=== PATIENT | female | born 1985 | race Caucasian/White ===

== ENCOUNTER 2021-10-23 09:02 | Emergency (ER) | payer MEDICAID ==
[2021-10-23 09:32] VITALS: BP 119/70
[2021-10-23] MEDS ORDERED: SODIUM CHLORIDE 0.9% 1000 ML 1,000 ML IV ONE (10:27)
[2021-10-23] MEDS ORDERED: ONDANSETRON 4 MG/2 ML INJ IV ONE (10:27)
[2021-10-23] MEDS ORDERED: ACETAMINOPHEN 500 MG TAB PO ONE (10:28)
[2021-10-23] MEDS ORDERED: PROMETHAZINE 25 MG TAB PO ONE (11:15)
--- NOTE | 2021-10-23 11:52 | Ultrasound Report ---
ULTRASOUND OBSTETRIC INDICATION: 12 weeks , pelvic pain. TECHNIQUE: Transabdominal. COMPARISON: None available. FINDINGS: GESTATIONAL SAC: Well-defined oval shape and intrauterine in location. YOLK SAC: No significant abnormality. EMBRYO/FETUS: No significant abnormality. - [place]-Rump Length = 7.2 cm = 13 weeks, 2 day(s). - Heart Rate = 152 beats per minute. ADNEXA: No significant abnormality. FREE FLUID: None. ADDITIONAL FINDINGS: None. IMPRESSION: 1. Single, living intrauterine with estimated sonographic age of 13 weeks, 2 day(s). 2. No acute findings. Signer Name: Jack Mueller MD Signed: 10/23/2021 11:48 AM Workstation Name: [id number]
--- NOTE | 2021-10-23 12:10 | Emergency Department Report ---
ED Female HPI - General Chief complaint: Abdominal Pain Stated complaint: 12 WKS PREG/CRAMPING/DEHYDRATED Source: patient Mode of arrival: Ambulatory Limitations: No Limitations - History of Present Illness Initial comments: Chief complaint: I am cramping so badly." HPI: This is a 36-year-old P 7 G 3-3-0-3 who presents with abdominal cramping. She is approximately 13 weeks 3 days according to her due date April 27, 2022. She receives obstetrical care at [facility]. She has had lower abdominal cramping for the last several days. She also has had constipation. Stool softener has not provided any relief. She denies vaginal bleeding. She has had significant nausea vomiting throughout her . MD Complaint: pelvic pain -: Gradual, days(s) (Several days) Severity: severe Quality: cramping Consistency: constant Improves with: none Worsens with: none Are you Now?: Yes Associated Symptoms: nausea/vomiting, other (Constipation) - Related Data Previous Rx's Medication Instructions Recorded Last Taken Type Promethazine [Phenergan] 25 mg PO Q6HR PRN #30 tab 10/23/21 Unknown Rx Allergies Allergy/AdvReac Type Severity Reaction Status Date / Time No Known Allergies Allergy Verified 10/23/21 09:32 ED Review of Systems ROS: Stated complaint: 12 WKS PREG/CRAMPING/DEHYDRATED Other details as noted in HPI Comment: All other systems reviewed and negative Constitutional: denies: chills, fever, malaise Respiratory: denies: cough, shortness of breath Cardiovascular: denies: chest pain Gastrointestinal: abdominal pain, nausea, vomiting, constipation ED Past Medical Hx - Past Medical History Previous Medical History?: Yes Hx Hypertension: Yes - Surgical History Past Surgical History?: Yes Additional Surgical History: Surgical x2 - Social History Smoking Status: Former Smoker Substance Use Type: None - Medications Home Medications: Home Medications Medication Instructions Recorded Confirmed Last Taken Type Promethazine [Phenergan] 25 mg PO Q6HR PRN #30 tab 10/23/21 Unknown Rx ED Physical Exam - General Limitations: No Limitations General appearance: alert, in no apparent distress - Head Head exam: Present: atraumatic, normocephalic - Eye Eye exam: Present: normal appearance - ENT ENT exam: Present: mucous membranes moist - Neck Neck exam: Present: normal inspection, full ROM - Respiratory Respiratory exam: Present: normal lung sounds bilaterally. Absent: respiratory distress, wheezes, rales, rhonchi - Cardiovascular Cardiovascular Exam: Present: regular rate, normal rhythm, normal heart sounds. Absent: systolic murmur, diastolic murmur, rubs, gallop - GI/Abdominal GI/Abdominal exam: Present: soft, normal bowel sounds. Absent: distended, tenderness, guarding, rebound - Extremities Exam Extremities exam: Present: normal inspection - Neurological Exam Neurological exam: Present: alert, oriented X3 - Psychiatric Psychiatric exam: Present: normal affect, normal mood - Skin Skin exam: Present: warm, dry, intact, normal color. Absent: rash ED Course Vital Signs 10/23/21 09:30 Temperature 98.7 F Pulse Rate 104 H Respiratory 18 Rate Blood Pressure 119/70 [Left] O2 Sat by Pulse 99 Oximetry ED Medical Decision Making - Lab Data Result diagrams: 10/23/21 11:30 10/23/21 11:30 - Radiology Data Radiology results: [place] [address] Ultrasound Report Signed Patient: JEROD ACEVEDO MR#: [id number] : 1985 Acct:[id number] Age/Sex: 36 / F ADM Date: 10/23/21 Loc: ED Attending Dr: Ordering Physician: Ngozi Sanford MD Date of Service: 10/23/21 Procedure(s): US OB <= 14 weeks fetus Accession Number(s): [id number] cc: Ngozi Sanford MD ULTRASOUND OBSTETRIC INDICATION: 12 weeks , pelvic pain. TECHNIQUE: Transabdominal. COMPARISON: None available. FINDINGS: GESTATIONAL SAC: Well-defined oval shape and intrauterine in location. YOLK SAC: No significant abnormality. EMBRYO/FETUS: No significant abnormality. - [address]-Rump Length = 7.2 cm = 13 weeks, 2 day(s). - Heart Rate = 152 beats per minute. ADNEXA: No significant abnormality. FREE FLUID: None. ADDITIONAL FINDINGS: None. IMPRESSION: 1. Single, living intrauterine with estimated sonographic age of 13 weeks, 2 day(s). 2. No acute findings. Signer Name: Jack Mueller MD Signed: 10/23/2021 11:48 AM Workstation Name: [id number] Transcribed By: PASQUALE Dictated By: Jack Mueller MD Electronically Authenticated By: Jack Mueller MD Signed Date/Time: 10/23/21 1148 DD/ 1147 TD/TT: - Medical Decision Making Abdominal pain in differential diagnosis includes threatened miscarriage, appendicitis, UTI, round ligament pain. Patient did have elevated white count. I performed serial abdominal exams. She did not have any tenderness or fever to indicate appendicitis. She has bilateral lower abdominal pain left to right. Pain improved with Tylenol. She understands to return if symptoms persist or worsens., She states that the pain feels like a contraction. She had pain similar pain earlier in her . She was diagnosed with UTI at that time. I have prescribed prophylactic antibiotic Macr obid. Ultrasound confirms IUP. Prescribed promethazine. Critical care attestation.: If time is entered above; I have spent that time in minutes in the direct care of this critically ill patient, excluding procedure time. ED Disposition Clinical Impression: Abdominal pain affecting Disposition: 01 HOME / SELF CARE / HOMELESS Is pt being admited?: No Does the pt Need Aspirin: No Condition: Stable Instructions: Abdominal Pain (ED), Abdominal Pain During , Gozs-vs-Iowz Prescriptions: Promethazine [Phenergan] 25 mg PO Q6HR PRN #30 tab PRN Reason: Nausea Referrals: PRIMARY CARE, [Primary Care Provider] - 3-5 Days
[2021-10-23 12:13] LABS: Basophils % (Auto) 0.3 % (0.0-1.8); Eosinophils # (Auto) 0.1 K/mm3 (0.0-0.4); Eosinophils % (Auto) 0.7 % (0.0-4.3); Hematocrit 44.3 % (30.3-42.9); Hemoglobin 14.3 gm/dl (10.1-14.3); Lymphocytes # (Auto) 1.5 K/mm3 (1.2-5.4); Lymphocytes % (Auto) 10.4 % (13.4-35.0); Mean Corpuscular HGB Conc 32 % (30-34); Mean Corpuscular Volume 87 fl (79-97); Monocytes # (Auto) 0.8 K/mm3 (0.0-0.8); Monocytes % (Auto) 5.5 % (0.0-7.3); Platelet Count 342 K/mm3 (140-440); Red Blood Count 5.07 M/mm3 (3.65-5.03); Red Cell Distribution Width 12.8 % (13.2-15.2)
[2021-10-23 12:38] LABS: Alanine Aminotransferase 14 units/L (7-56); Albumin 4.2 g/dL (3.9-5); Blood Urea Nitrogen 6 mg/dL (7-17); Calcium 9.2 mg/dL (8.4-10.2); Hemolysis Index 0
[2021-10-23 12:47] LABS: BUN/Creatinine Ratio 12
== END 2021-10-23 13:37 | disposition home or self-care (01) ==
LOC: ED 09:02
DX: O26.891 Other specified pregnancy related conditions, first trimester (principal); R10.9 Unspecified abdominal pain; Z3A.13 13 weeks gestation of pregnancy; I10 Essential (primary) hypertension; Z98.890 Other specified postprocedural states; Z87.891 Personal history of nicotine dependence; Z79.899 Other long term (current) drug therapy
CPT/HCPCS: 36415; 76801; 80053; 85025; 96360; 99284; J2405; J7030; Q0169; Q0162

== ENCOUNTER 2021-12-22 11:32 | Outpatient (CLI) | payer MEDICAID ==
[2021-12-22] MEDS ORDERED: LACTATED RINGERS 1,000 ML IV ONE (12:00)
[2021-12-22] MEDS ORDERED: METOCLOPRAMIDE 10 MG/2 ML INJ IV ONE (12:29)
[2021-12-22] MEDS ORDERED: BICITRA ORAL LIQD 30ML PO ONE (12:30)
[2021-12-22 12:42] VITALS: BP 125/79
[2021-12-22 12:47] LABS: Mucus,Urine 3+ /HPF
[2021-12-22 12:48] LABS: Color,Urine Dark Yellow (Yellow)
[2021-12-22 12:49] LABS: Bilirubin,Urine Small (Negative); Blood,Urine Trace (Negative); PH,Urine 6.5 (5.0-7.0)
[2021-12-22 12:50] LABS: Urobilinogen,Urine < 2.0 mg/dL (<2.0)
[2021-12-22 12:57] LABS: Ictotest,Urine Negative (Negative)
== END 2021-12-22 14:36 | disposition home or self-care (01) ==
LOC: TRG 11:32 → APU 11:34 → TRG 14:36
PROVIDERS: ATTEND Obstetrics & Gynecology
DX: O21.2 Late vomiting of pregnancy (principal); O16.2 Unspecified maternal hypertension, second trimester; O26.892 Other specified pregnancy related conditions, second trimester; R07.9 Chest pain, unspecified; R10.9 Unspecified abdominal pain; R42 Dizziness and giddiness; E86.0 Dehydration; Z3A.21 21 weeks gestation of pregnancy
CPT/HCPCS: 59025; 81001; 96361; 96374; J2765; J7120; 96360

== ENCOUNTER 2021-12-23 14:39 | Outpatient (CLI) | payer MEDICAID ==
[2021-12-23] MEDS ORDERED: LACTATED RINGERS 500 ML IV ONE (15:15)
[2021-12-23] MEDS ORDERED: ONDANSETRON 4 MG/2 ML INJ ONE (17:04)
[2021-12-23 17:07] VITALS: BP 134/82
[2021-12-23] MEDS ORDERED: ONDANSETRON 4 MG/2 ML INJ IV ONE (18:00)
[2021-12-23] MEDS ORDERED: METOCLOPRAMIDE 10 MG/2 ML INJ IV ONE (18:00)
== END 2021-12-23 19:25 | disposition home or self-care (01) ==
LOC: TRG 14:39 → APU 14:41 → TRG 19:25
PROVIDERS: ATTEND Obstetrics & Gynecology
DX: O21.2 Late vomiting of pregnancy (principal); O26.892 Other specified pregnancy related conditions, second trimester; R42 Dizziness and giddiness; R07.81 Pleurodynia; O13.2 Gestational [pregnancy-induced] hypertension without significant proteinuria, second trimester; Z3A.21 21 weeks gestation of pregnancy
CPT/HCPCS: 59025; 96361; 96365; 96368; J2405; J2765; J7120

== ENCOUNTER 2022-03-05 17:39 | Outpatient (CLI) | payer MEDICAID ==
[2022-03-05] MEDS ORDERED: LACTATED RINGERS 500 ML IV ONE (18:48)
[2022-03-05] MEDS ORDERED: ONDANSETRON 4 MG/2 ML INJ IV ONE (20:14)
[2022-03-05 20:32] LABS: Bacteria,Urine 2+ /HPF (Negative); Bilirubin,Urine NEG (Negative); Blood,Urine SM (Negative); Color,Urine Yellow (Yellow); Mucus,Urine 1+ /HPF; Urobilinogen,Urine < 2.0 mg/dL (<2.0)
[2022-03-05 20:33] LABS: WBC,Urine > 182.0 /HPF (0.0-6.0)
[2022-03-05] MEDS ORDERED: LIDOCAINE-MPF (1%) 10 MG/1 ML VIAL 5 ML INFILTRATI ONE (20:53)
[2022-03-05] MEDS ORDERED: ACETAMINOPHEN 500 MG TAB PO ONE (20:56)
[2022-03-05 22:18] VITALS: BP 130/83
[2022-03-05] MEDS ORDERED: NIFEdipine*For Tocolysis only* 10 MG CAPSULE PO ONE (22:56)
[2022-03-06] MEDS ORDERED: BETAMET ACET/BETAMET NA PH 6 MG/ML INJ 5 ML MDV IM ONE (00:31)
== END 2022-03-06 01:00 | disposition home or self-care (01) ==
LOC: TRG 17:39 → APU 17:41 → TRG 03-06 01:00
PROVIDERS: ATTEND Obstetrics & Gynecology
DX: O26.893 Other specified pregnancy related conditions, third trimester (principal); R10.30 Lower abdominal pain, unspecified; M54.9 Dorsalgia, unspecified; O13.3 Gestational [pregnancy-induced] hypertension without significant proteinuria, third trimester; O24.913 Unspecified diabetes mellitus in pregnancy, third trimester; Z3A.32 32 weeks gestation of pregnancy
CPT/HCPCS: 36415; 59025; 81001; 82731; 96361; 96372; 96374; 96375; J0696; J0702; J2405; J3490; J7120; 96360

== ENCOUNTER 2022-03-07 10:41 | Outpatient (CLI) | payer MEDICAID ==
[2022-03-07] MEDS ORDERED: BETAMET ACET/BETAMET NA PH 6 MG/ML INJ 5 ML MDV IM NR (10:45)
[2022-03-07] MEDS ORDERED: BETAMET ACET/BETAMET NA PH 6 MG/ML INJ 5 ML MDV IM ONE (10:47)
[2022-03-11] MEDS ORDERED: LACTATED RINGERS 1,000 ML ONE (10:11)
[2022-03-15] MEDS ORDERED: LACTATED RINGERS 1,000 ML ONE ×2 (06:45→19:04)
== END 2022-03-07 11:00 | disposition home or self-care (01) ==
LOC: TRG 10:41 → APU 10:43 → TRG 11:00
PROVIDERS: ATTEND Obstetrics & Gynecology
DX: O47.03 False labor before 37 completed weeks of gestation, third trimester (principal); Z3A.32 32 weeks gestation of pregnancy
CPT/HCPCS: 96372; J0702

== ENCOUNTER 2022-04-14 19:11 | Inpatient (IN) | payer MEDICAID ==
[2022-04-14] MEDS ORDERED: ACETAMINOPHEN 325 MG TAB PO ONE (19:59)
[2022-04-14] MEDS ORDERED: SODIUM CHLORIDE 0.9% 1000 ML 1,000 ML IV SCH (20:00)
[2022-04-14 22:09] LABS: Creatinine,Urine 55.8 mg/dL (0.1-20.0)
[2022-04-14 22:11] LABS: Bilirubin,Urine NEG (Negative); Blood,Urine NEG (Negative); Color,Urine Yellow (Yellow); Protein,Urine <15 mg/dL mg/dL (Negative); Urobilinogen,Urine < 2.0 mg/dL (<2.0)
[2022-04-14 22:12] LABS: Mucus,Urine FEW /HPF
[2022-04-14 22:29] LABS: Basophils % (Auto) 0.4 % (0.0-1.8); Eosinophils # (Auto) 0.2 K/mm3 (0.0-0.4); Eosinophils % (Auto) 1.5 % (0.0-4.3); Hematocrit 33.6 % (30.3-42.9); Hemoglobin 11.1 gm/dl (10.1-14.3); Lymphocytes # (Auto) 2.2 K/mm3 (1.2-5.4); Lymphocytes % (Auto) 18.2 % (13.4-35.0); Mean Corpuscular HGB Conc 33 % (30-34); Mean Corpuscular Volume 88 fl (79-97); Monocytes # (Auto) 1.2 K/mm3 (0.0-0.8); Monocytes % (Auto) 9.6 % (0.0-7.3); Platelet Count 260 K/mm3 (140-440); Red Cell Distribution Width 14.1 % (13.2-15.2)
[2022-04-14 22:51] LABS: Alanine Aminotransferase 8 units/L (7-56)
[2022-04-14 23:13] LABS: Alanine Aminotransferase 8 units/L (7-56); Albumin 3.2 g/dL (3.9-5); Blood Urea Nitrogen 7 mg/dL (7-17); Calcium 9.2 mg/dL (8.4-10.2); Hemolysis Index 5
[2022-04-14 23:21] LABS: BUN/Creatinine Ratio 18
[2022-04-14] MEDS ORDERED: TERBUTALINE 1 MG/1 ML INJ SUB-Q PRN (23:39)
[2022-04-14] MEDS ORDERED: ePHEDrine SULFATE 50 MG/1 ML INJ IV PRN (23:39)
[2022-04-14] MEDS ORDERED: CARBOPROST TROMETHAMINE 250 MCG/1 ML INJ IM PRN (23:39)
--- NOTE | 2022-04-14 23:39 | History and Physical Report ---
History of Present Illness Date of examination: 04/14/22 Date of admission: 04/14/2022 Chief complaint: Chronic hypertension on medication with exacerbation of blood pressure at home History of present illness: 36-year-old at 37-6/7 weeks gestation presents to OB triage reporting elevated blood pressure >150/100 at home despite taking her usual dose of lab etalol. There are no headaches, diplopia, right upper quadrant pain, or scotomata. There is no vaginal bleeding. There is no leaking of fluid. There are irregular contractions. There is good movement. In OB triage, superimposed preeclampsia was ruled out. However, as this patient has chronic hypertension on medication at 37 weeks gestation, induction of labor is medically indicated according to ACOG committee opinion 831. The patient is admitted to labor and delivery for cervical ripening and induction of labor. Past History Past Medical History: hypertension Past Surgical History: no surgical history Family/Genetic History: none Social history: no significant social history - Obstetrical History Expected Date of Delivery: 04/29/22 Actual Gestation: 38 Week(s) 0 Day(s) : 6 Para: 3 Hx # Term Pregnancies: 3 Spontaneous Abortions: 2 Medications and Allergies Allergies Allergy/AdvReac Type Severity Reaction Status Date / Time No Known Allergies Allergy Verified 10/23/21 09:32 Home Medications Medication Instructions Recorded Confirmed Last Taken Type Promethazine [Phenergan] 25 mg PO Q6HR PRN #30 tab 10/23/21 04/14/22 Rx Labetalol 100mg TAB 100 mg PO DAILY 03/05/22 03/05/22 04/14/22 History Review of Systems All systems: negative - Vital Signs Vital signs: Vital Signs Pulse BP 97 H 123/82 04/14/22 19:41 04/14/22 19:41 Temp Pulse Resp BP Pulse Ox 99 F 89 17 121/80 98 04/14/22 19:42 04/14/22 23:34 04/14/22 19:42 04/14/22 23:25 04/14/22 23:34 - Physical Exam Breasts: Positive: normal Cardiovascular: Regular rate Lungs: Positive: Normal air movement Abdomen: Positive: normal appearance, normal bowel sounds Genitourinary (Female): Positive: normal external genitalia, normal perenium Vulva: both: normal Vagina: Positive: normal moisture Uterus: Positive: enlarged Adnexa: both: normal Anus/Rectum: Positive: normal perianal skin Extremities: Positive: normal Deep Tendon Reflex Grade: Normal +2 - Obstetrical FHR: category 1 Uterine Contraction Monitor Mode: Palpation Cervical Dilatation: 1.5 Cervical Effacement Percentage: 60 station: -3 Uterine Contraction Pattern: Irregular Results Result Diagrams: 04/14/22 22:00 04/14/22 22:00 Abnormal lab results 04/14/22 04/14/22 04/14/22 Range/Units 22:00 22:00 22:00 WBC 12.0 H (4.5-11.0) K/mm3 Johnston % (Auto) 9.6 H (0.0-7.3) % Johnston # (Auto) 1.2 H (0.0-0.8) K/mm3 Seg Neutrophils % 70.3 H (40.0-70.0) % Seg Neutrophils # 8.5 H (1.8-7.7) K/mm3 Carbon Dioxide 20 L (22-30) mmol/L Creatinine 0.4 L 0.4 L (0.6-1.2) mg/dL Alkaline Phosphatase 171 H (35-129) units/L Total Protein 5.9 L (6.3-8.2) g/dL Albumin 3.2 L (3.9-5) g/dL Urine Creatinine (0.1-20.0) mg/dL Urine Total Protein (5-11.8) mg/dL 04/14/22 Range/Units Unknown WBC (4.5-11.0) K/mm3 Johnston % (Auto) (0.0-7.3) % Johnston # (Auto) (0.0-0.8) K/mm3 Seg Neutrophils % (40.0-70.0) % Seg Neutrophils # (1.8-7.7) K/mm3 Carbon Dioxide (22-30) mmol/L Creatinine (0.6-1.2) mg/dL Alkaline Phosphatase (35-129) units/L Total Protein (6.3-8.2) g/dL Albumin (3.9-5) g/dL Urine Creatinine 55.8 H (0.1-20.0) mg/dL Urine Total Protein 13 H (5-11.8) mg/dL Urine Protein to Creatinine Ratio (UPCR)= 0.23 Estimated 24 hour urine protein= 259 mg Ultrasound: report reviewed, image reviewed (OB US Limited= SLIUP. Vertex. Posterior placenta. EFW= 3567 g (81st %-ile). YULI= 8.4 cm.) Assessment and Plan - Patient Problems (1) 37 weeks gestation of Current Visit: Yes Status: Acute Plan to address problem: care is up-to-date at [facility] [employer]NAGER. GBS status is unknown. Currently, there are no risk factors for GBS. As such, no intrapartum GBS prophylaxis at this time. However, if this patient does develop risk factors for GBS, then administer intravenous penicillin for intrapartum GBS prophylaxis. (2) Chronic hypertension during Current Visit: Yes Status: Acute Plan to address problem: This patient has chronic hypertension. She takes labetalol 100 mg p.o. twice daily for this. However, as this patient has chronic hypertension on medication and is currently at 37 weeks gestation, induction of labor is medically indicated according to ACOG committee opinion 831. Admit to labor and delivery for cervical ripening and induction of labor. (3) Encounter for induction of labor Current Visit: Yes Status: Acute Plan to address problem: Ripen cervix with Cytotec 25 mcg p.o. every 4 [address] Cook's catheter to traction for further cervical ripening. Once catheter falls out, consider artificial rupture membranes and initiation of Pitocin.
[2022-04-14] MEDS ORDERED: ACETAMINOPHEN 325 MG TAB PO PRN (23:45)
[2022-04-14] MEDS ORDERED: fentaNYL 100 MCG/2 ML INJ IV PRN (23:45)
[2022-04-14] MEDS ORDERED: OXYTOCIN DRIP 30 UNITS/500 ML BAG IV SCH (23:45)
[2022-04-14] MEDS ORDERED: BUTORPHANOL 2 MG/1 ML INJ IV PRN (23:45)
--- NOTE | 2022-04-15 00:23 | Ultrasound Report ---
ULTRASOUND OBSTETRIC LIMITED INDICATION / CLINICAL INFORMATION: EFW and YULI. - Clinical Gestational Age (GA) in weeks, days: 37, 6 TECHNIQUE: Transabdominal. COMPARISON: None available. FINDINGS: HEART RATE (beats per minute): 152 AMNIOTIC FLUID INDEX (cm) = 8.4 (normal = 7-24 cm) PRESENTATION: Cephalic. ADDITIONAL FINDINGS: Estimated age is 38 weeks 5 days. Estimated weight is 3567 g. IMPRESSION: 1. Amniotic fluid index is 8.4 cm. 2. Estimated weight is 3567 g. Signer Name: Porter Elias MD Signed: 04/15/2022 12:18 AM Workstation Name: [id number]
[2022-04-15 01:07] LABS: Uric Acid 4.1 mg/dL (3.5-7.6)
[2022-04-15] MEDS: miSOPROStol 25 MCG TAB PO SCH ×2 (01:55→08:13)
[2022-04-15 06:05] LABS: Hematocrit 32.6 % (30.3-42.9); Hemoglobin 10.8 gm/dl (10.1-14.3); Mean Corpuscular HGB Conc 33 % (30-34); Mean Corpuscular Volume 88 fl (79-97); Platelet Count 228 K/mm3 (140-440); Red Blood Count 3.69 M/mm3 (3.65-5.03); Red Cell Distribution Width 14.1 % (13.2-15.2)
[2022-04-15] MEDS: LACTATED RINGERS 1,000 ML IV SCH ×3 (12:30→16:36)
[2022-04-15] MEDS ORDERED: ePHEDrine SULFATE 50 MG/1 ML INJ IV PRN (13:52)
[2022-04-15] MEDS ORDERED: NALOXONE 0.4 MG/1 ML INJ IV PRN (13:52)
--- NOTE | 2022-04-15 14:27 | Anesthesia Consultation ---
Anesthesia Consult and Med Hx Date of service: 04/15/22 - Airway Anesthetic Teeth Evaluation: Good ROM Head & Neck: Adequate Mental/Hyoid Distance: Adequate Mallampati Class: Class II Intubation Access Assessment: Good - Pulmonary Exam CTA: Yes - Cardiac Exam Cardiac Exam: RRR - Pre-Operative Health Status ASA Pre-Surgery Classification: ASA2 Proposed Anesthetic Plan: General - Pulmonary Hx Asthma: No - Cardiovascular System Hx Hypertension: Yes (with this preg) - Central Nervous System Hx Seizures: No Hx Psychiatric Problems: No - Endocrine Hx Renal Disease: No Hx Hypothyroidism: No Hx Hyperthyroidism: No - Hematic Hx Anemia: No Hx Sickle Cell Disease: No - Other Systems Hx Alcohol Use: No
--- NOTE | 2022-04-15 14:30 | Progress Note ---
Labor Epidural - Labor Epidural Start Time: 13:38 Stop Time: 13:52 Performed by:: NACHO ROBIN Procedure: Patient is requesting epidural for labor and pain. H&P, labs were reviewed. Patient IDed, all questions and concerns were answered, and consent was signed. Timeout was performed at bedside. Patient in sitting position. Sterile prep and drape was performed. 3ml of 1% lidocaine skin wheal at L[3]- L [4]. 17- gauge Tuohy epidural needle was advanced to loss of resistance with air technique cm. Negative CSF negative blood. Epidural catheter advanced to [12] centimeters. [negative] Aspiration [negative] test dose. Sterile dressing applied. Patient tolerated procedure.
[2022-04-15] MEDS: fentaNYL-BUPIV 2 MCG/ML-0.125% 200 MCG/100 ML BAG EPIDURAL SCH ×2 (15:17→21:44)
[2022-04-15] MEDS ORDERED: LACTATED RINGERS 1,000 ML IV SCH (15:30)
--- NOTE | 2022-04-15 16:38 | Event Note ---
Date: 04/15/22 S: Has epidural now O: VE /-2, arom clear fluid, CAT I tracing, contractions every 5-6 min A: Induction of labor for CHTN P: Augment with pitocin Expect
[2022-04-15] MEDS ORDERED: OXYTOCIN DRIP 30 UNITS/500 ML BAG IV SCH (17:00)
[2022-04-15] MEDS ORDERED: BICITRA ORAL LIQD 30ML PO ONE (20:00)
[2022-04-15] MEDS ORDERED: ONDANSETRON 4 MG/2 ML INJ IV ONE (20:00)
[2022-04-15] MEDS ORDERED: MINERAL OIL 30 ML ORAL LIQD ONE (22:40)
--- NOTE | 2022-04-15 23:13 | Procedure Note ---
OB Delivery Note - Delivery Date of Delivery: 04/15/22 Surgeon: LENNOX GREEN Estimated blood loss: other (400) - Vaginal Delivery presentation: vertex Delivery position: OA Intrapartum events: other(please specify) (chronic HTN) Delivery induction: misoprostol Delivery augmentation: rupture of membranes, pitocin Delivery monitor: external FHT, external uterine Route of delivery: Delivery placenta: spontaneous Delivery cord: 3 umbilical vessels Episiotomy: none Delivery laceration: 1st degree Delivery repair: vicryl Anesthesia: epidural Delivery comments: of a viable male on 04/15/2022 @ 2248 over first degree laceration. PLacenta delivered 3VCI. Laceration repaired with 2-0 vicryl. QBL 400 cc. Mother and baby doing well. - A at 1 minute: 8 at 5 minutes: 9 Gender: Male
[2022-04-15] MEDS ORDERED: diphenhydrAMINE 25 MG CAP PO PRN (23:14)
[2022-04-15] MEDS ORDERED: PROMETHAZINE 25 MG RECT SUPP PR PRN (23:14)
[2022-04-15] MEDS ORDERED: LANOLIN/ZINC/DIMETHICONE (LANSINOH) 7 GM TP PRN (23:14)
[2022-04-15] MEDS ORDERED: WITCH HAZEL/ GLYCERIN PAD TP PRN (23:14)
[2022-04-15] MEDS ORDERED: oxyCODONE /ACETAMINOPHEN 5-325MG TAB PO PRN (23:14)
[2022-04-15] MEDS ORDERED: ACETAMINOPHEN 325 MG TAB PO PRN (23:14)
[2022-04-15] MEDS ORDERED: PROMETHAZINE 25 MG TAB PO PRN (23:14)
[2022-04-16] MEDS: IBUPROFEN 800 MG TAB PO SCH ×4 (01:33→18:18)
--- NOTE | 2022-04-16 12:10 | Progress Note ---
Assessment and Plan A: PPD#1 POST INDUCTION FOR CHTN @ 38WKS P:CONTININUE ROUTINE PP ORDERS ANTICIPATED/C HOME IN 24 HRS IF STABLE Subjective - Subjective Date of service: 04/16/22 Principal diagnosis: CHTN Patient reports: appetite normal, pain well controlled, ambulating normally : doing well, nursing well Objective - Vital Signs Latest vital signs: Vital Signs Temp Pulse Resp BP BP Pulse Ox Pulse Ox 04/16/22 08:00 98 04/16/22 07:32 97.7 F 76 16 117/62 96 04/16/22 07:06 99.1 F 82 18 117/78 97 04/16/22 06:15 18 04/16/22 02:05 98.2 F 90 18 115/76 96 100 04/16/22 01:23 99 H 98 04/16/22 01:18 106 H 97 04/16/22 01:13 99 H 97 04/16/22 01:08 105 H 97 04/16/22 01:07 98.6 F 04/16/22 01:03 105 H 97 04/16/22 00:58 107 H 96 04/16/22 00:53 104 H 96 04/16/22 00:48 104 H 97 04/16/22 00:43 105 H 95 04/16/22 00:38 109 H 97 04/16/22 00:33 96 H 123/67 97 04/16/22 00:28 102 H 95 04/16/22 00:23 101 H 97 04/16/22 00:18 106 H 97 04/16/22 00:13 107 H 97 04/16/22 00:08 105 H 96 04/16/22 00:05 109 H 93 04/16/22 00:03 106 H 120/77 97 04/15/22 23:58 109 H 95 04/15/22 23:53 106 H 95 04/15/22 23:48 105 H 97 04/15/22 23:43 101 H 97 04/15/22 23:38 100 H 97 04/15/22 23:33 100 H 125/81 96 04/15/22 23:28 103 H 97 04/15/22 23:23 99 H 98 04/15/22 23:18 108 H 96 04/15/22 23:13 111 H 97 04/15/22 23:08 97 H 96 04/15/22 23:03 97 H 126/78 97 04/15/22 22:58 104 H 98 04/15/22 22:53 103 H 97 04/15/22 22:48 110 H 97 04/15/22 22:43 108 H 97 04/15/22 22:38 70 90 04/15/22 22:34 102 H 133/90 04/15/22 22:33 98 H 98 04/15/22 22:28 94 H 97 04/15/22 22:23 101 H 97 04/15/22 22:18 94 H 99 04/15/22 22:13 102 H 97 04/15/22 22:08 81 97 04/15/22 22:03 98.1 F 87 18 135/93 98 04/15/22 22:02 92 H 135/93 04/15/22 21:58 75 100 04/15/22 21:53 82 100 04/15/22 21:50 97 H 141/96 04/15/22 21:48 78 100 04/15/22 21:43 87 100 04/15/22 21:38 83 100 04/15/22 21:34 80 143/78 04/15/22 21:33 91 H 100 04/15/22 21:28 86 98 04/15/22 21:23 90 100 04/15/22 21:19 80 133/72 04/15/22 21:18 84 100 04/15/22 21:13 91 H 100 04/15/22 21:08 95 H 100 04/15/22 21:04 101 H 127/88 04/15/22 21:03 102 H 98 04/15/22 20:58 103 H 100 04/15/22 20:53 79 100 04/15/22 20:48 81 124/77 100 04/15/22 20:43 83 100 04/15/22 20:38 75 100 04/15/22 20:34 71 118/73 04/15/22 20:33 76 100 04/15/22 20:28 76 100 04/15/22 20:23 79 100 04/15/22 20:19 70 110/69 04/15/22 20:18 68 100 04/15/22 20:13 68 100 04/15/22 20:08 87 100 04/15/22 20:06 98.4 F 88 18 108/66 100 04/15/22 20:03 86 108/66 100 04/15/22 19:58 90 100 04/15/22 19:53 71 100 04/15/22 19:50 75 111/65 04/15/22 19:49 68 85 04/15/22 19:48 69 100 04/15/22 19:43 77 100 04/15/22 19:38 86 100 04/15/22 19:33 77 123/71 100 04/15/22 19:28 73 100 04/15/22 19:23 82 100 04/15/22 19:20 80 111/72 04/15/22 19:18 76 100 04/15/22 19:13 71 100 04/15/22 19:10 100 04/15/22 19:08 84 100 04/15/22 19:05 90 134/84 04/15/22 19:03 109 H 98 04/15/22 18:58 114 H 98 04/15/22 18:53 87 99 04/15/22 18:48 79 98 04/15/22 18:43 69 98 04/15/22 18:38 77 98 04/15/22 18:34 72 109/62 04/15/22 18:33 73 99 04/15/22 18:28 81 99 04/15/22 18:23 76 98 04/15/22 18:18 76 131/78 100 04/15/22 18:16 97.7 F 18 04/15/22 18:13 92 H 99 04/15/22 18:08 82 97 04/15/22 18:03 86 99 04/15/22 17:58 98 H 98 04/15/22 17:53 83 99 04/15/22 17:48 82 98 04/15/22 17:43 79 100 04/15/22 17:38 92 H 100 04/15/22 17:33 86 97/60 98 04/15/22 17:28 81 100 04/15/22 17:23 87 98 04/15/22 17:20 88 107/75 04/15/22 17:18 76 99 04/15/22 17:13 89 97 04/15/22 17:08 92 H 98 04/15/22 17:05 77 107/61 04/15/22 17:03 88 98 04/15/22 16:58 88 93 04/15/22 16:53 102 H 98 04/15/22 16:49 93 H 110/78 91 04/15/22 16:48 77 99 04/15/22 16:43 79 98 04/15/22 16:38 87 99 04/15/22 16:34 92 H 137/84 04/15/22 16:33 89 97 04/15/22 16:28 81 98 04/15/22 16:23 89 99 04/15/22 16:20 84 114/70 04/15/22 16:18 79 98 04/15/22 16:13 93 H 97 04/15/22 16:08 88 98 04/15/22 16:03 86 129/91 98 04/15/22 15:58 92 H 99 04/15/22 15:53 84 98 04/15/22 15:49 91 H 125/84 04/15/22 15:48 97 H 97 04/15/22 15:43 88 98 04/15/22 15:38 81 98 04/15/22 15:37 98.6 F 17 04/15/22 15:35 84 135/88 04/15/22 15:33 88 97 04/15/22 15:28 90 97 04/15/22 15:23 87 98 04/15/22 15:18 86 128/76 99 04/15/22 15:16 88 137/81 04/15/22 15:14 88 146/90 04/15/22 15:13 92 H 99 04/15/22 15:12 93 H 151/95 04/15/22 15:10 99 H 145/93 04/15/22 15:08 94 H 135/86 96 04/15/22 15:06 77 123/79 04/15/22 15:04 65 136/77 04/15/22 15:03 85 97 04/15/22 15:02 69 143/84 04/15/22 15:00 77 130/81 04/15/22 14:58 76 126/79 97 04/15/22 14:56 88 121/73 04/15/22 14:54 84 133/72 04/15/22 14:53 82 98 04/15/22 14:52 80 139/79 04/15/22 14:50 86 141/85 07/15/22 14:48 85 126/82 97 04/15/22 14:46 88 126/82 04/15/22 14:43 88 119/80 97 04/15/22 14:42 88 118/79 04/15/22 14:40 85 124/84 04/15/22 14:38 90 129/84 97 04/15/22 14:36 90 117/80 04/15/22 14:34 91 H 127/70 04/15/22 14:33 96 H 98 04/15/22 14:32 93 H 126/79 04/15/22 14:30 96 H 138/86 04/15/22 14:28 72 136/73 96 04/15/22 14:26 84 126/75 04/15/22 14:24 79 132/70 04/15/22 14:23 85 97 04/15/22 14:22 72 126/81 04/15/22 14:20 87 124/80 04/15/22 14:18 88 122/74 96 04/15/22 14:15 84 117/74 04/15/22 14:14 90 116/75 04/15/22 14:13 86 97 04/15/22 14:12 88 115/67 04/15/22 14:10 123 H 121/80 04/15/22 14:08 90 132/76 98 04/15/22 14:06 87 133/76 04/15/22 14:04 92 H 128/75 04/15/22 14:03 90 98 04/15/22 14:02 94 H 136/78 04/15/22 14:00 90 124/74 04/15/22 13:58 91 H 127/77 96 04/15/22 13:56 90 141/79 04/15/22 13:54 103 H 137/87 04/15/22 13:53 101 H 97 04/15/22 13:52 104 H 143/94 04/15/22 13:50 108 H 140/95 04/15/22 13:48 102 H 98 04/15/22 13:47 107 H 138/88 04/15/22 13:43 111 H 98 04/15/22 13:38 114 H 97 04/15/22 12:21 99 H 98 04/15/22 12:16 92 H 98 04/15/22 12:11 96 H 97 04/15/22 12:06 88 144/79 97 04/15/22 12:01 96 H 98 Intake and Output 04/15/22 04/16/22 04/16/22 23:59 07:59 15:59 Intake Total 4.634 240 Output Total 1200 800 Balance -1195.366 -800 240 Intake: IV 4.634 PITOCin/NS 30 UNIT/500ML 4.634 30 units In 500 ml @ 2 mls/hr IV TITR CHARU Rx#: [id number] Oral 240 Output: Urine 1200 800 Indwelling Catheter 1200 Void 800 Other: Total, Intake Amount 240 Total, Output Amount 300 600 Estimated Blood Loss 400 - Exam Breasts: Present: normal Cardiovascular: Present: Regular rate Lungs: Present: Clear to auscultation Abdomen: Present: normal appearance, soft, tenderness Uterus: Present: firm, fundal height below umbilicus Extremities: Present: normal
--- NOTE | 2022-04-16 12:21 | Discharge Summary ---
Providers - Providers Date of Admission: 04/14/22 23:39 Date of discharge: 04/17/22 Attending physician: ELADIA MALDONADO [facility] Primary care physician: ELADIA MALDONADO Hospitalization Reason for admission: other (ELEVATED BP READING) Delivery: Episiotomy: none Laceration: 1st degree Other procedures: none complications: none Discharge diagnosis: IUP at term delivered [place] baby: male Condition at discharge: Good Disposition: 01 HOME / SELF CARE / HOMELESS Plan - Discharge Medications Prescriptions: Labetalol 100mg TAB 100 mg PO DAILY #30 Ibuprofen [Motrin 800 MG tab] 800 mg PO Q6HR #30 tablet - Provider Discharge Summary Activity: no sex for 6 weeks, no heavy lifting 4 weeks, no strenuous exercise Diet: routine Instructions: routine Additional instructions: [] Smoking cessation referral if applicable(refer to patient education folder for contact #) [] Refer to [facility]'s [facility] Center Booklet Call your doctor immediately for: * Fever > 100.5 * Heavy vaginal bleeding ( >1 pad per hour) * Severe persistent headache * Shortness of breath * Reddened, hot, painful area to leg or breast * Drainage or odor from incision. * Keep incision clean and dry at all times and follow doctor's instructions regarding bathing/showering - Follow up plan Follow up: ELADIA MALDONADO MD [Primary Care Provider] - 6 Weeks
[2022-04-16] MEDS ORDERED: BENZOCAINE/MENTHOL 20/0.5% TOP SPRAY 56 GM TP PRN (14:00)
--- NOTE | 2022-04-16 14:16 | Post Anesthesia Evaluation ---
- Post Anesthesia Evaluation Patient Participated: Yes Airway Patent: Yes Stable Respiratory Function: Yes Nausea/Vomiting: No Temp > 96.8F: Yes Pain Manageable: Yes Adequeate Hydration: Yes Anesthesia Complications: No Block Receding Appropriately: Yes Patient on Ventilator: No
[2022-04-16 15:23] LABS: Hematocrit 31.7 % (30.3-42.9); Hemoglobin 10.5 gm/dl (10.1-14.3)
[2022-04-17] MEDS: IBUPROFEN 800 MG TAB PO SCH ×2 (04:34→10:05)
[2022-04-17 16:08] VITALS: BP 138/93
== END 2022-04-17 16:55 | disposition home or self-care (01) | DRG 774 ==
LOC: TRG 19:11 → APU 19:15 → TRG 23:39 → LD 23:39 → OB 04-16 02:11
PROVIDERS: ADMIT Obstetrics & Gynecology; ATTEND Obstetrics & Gynecology
PROC: 10E0XZZ Delivery of Products of Conception, External Approach (ICD-10-PCS; principal; 2022-04-15)
PROC: 3E0R3BZ Introduction of Anesthetic Agent into Spinal Canal, Percutaneous Approach (ICD-10-PCS; 2022-04-15)
PROC: 00HU33Z Insertion of Infusion Device into Spinal Canal, Percutaneous Approach (ICD-10-PCS; 2022-04-15)
PROC: 3E0P7VZ Introduction of Hormone into Female Reproductive, Via Natural or Artificial Opening (ICD-10-PCS; 2022-04-15)
PROC: 0HQ9XZZ Repair Perineum Skin, External Approach (ICD-10-PCS; 2022-04-15)
DX: O10.92 Unspecified pre-existing hypertension complicating childbirth (principal); Z20.822 Contact with and (suspected) exposure to COVID-19; Z3A.37 37 weeks gestation of pregnancy; Z37.0 Single live birth; O70.0 First degree perineal laceration during delivery
CPT/HCPCS: 36415; 76815; 76816; 80053; 81001; 82565; 82570; 83615; 84156; 84450; 84460; 84550; 85014; 85018; 85025; 85027; 86850; 86900; 86901; G0378; J3490; J2405; J2590; J7120; U0003